=== PATIENT | male | born 1955 | race Caucasian/White ===

== ENCOUNTER 2020-06-24 19:53 | Inpatient (IN) | payer OTHER ==
[~2020-06-24] VITALS: Ht 175.3 cm; Wt 87.5 kg
[2020-06-24] MEDS ORDERED: ASPIRIN 81 MG CHEW TAB PO ONE ×2 (20:15→22:45)
--- NOTE | 2020-06-24 20:43 | Emergency Department Note ---
History of Present Illnes History of Present Illness Chief Complaint: Chest Pain History of Present Illness This is a 64 year old male SENT TO ER FOR ADMISSION BY DR. Arjun LEVY, PT IS SCHEDULED FOR [facility] TOMORROW AM AT THIS FACILITY; PT REPORTS INTERMITTENT CHEST PAIN X2 YEARS . states has had intermittent chest pain all day today, pain is left side of chest and does not radiate Historian: Patient Arrival Mode: Car Realtime Captioner Required: No Onset (how long ago): year(s) (2) Location: left chest Quality: pain Radiation: Reports non-radiation Severity: moderate Onset quality: sudden Duration (how long): month(s) (24) Timing of current episode: intermittent Progression: worsening Chronicity: recurrent Context: Denies recent illness, Denies recent surgery, Denies trauma/injury Relieving factors: none Exacerbating factors: none Associated symptoms: Reports denies other symptoms Past Medical/Family History Physician Review I have reviewed the patient's past medical and family history. Any updates have been documented here. Past Medical History Recent Fever: No Clinical Suspicion of Infectio: No New/Unexplained Change in Ment: No Social History Smoking Cessation: Current every day smoker Counseling Performed: Yes Alcohol Use: Occasional Any Illegal Drug Use: No Family History Family history of heart diseas: Yes Other family history htn,cad Review of Systems Review of Systems Constitutional: Reports no symptoms EENTM: Reports no symptoms Cardiovascular: Reports as per HPI Respiratory: Reports no symptoms Gastrointestinal: Reports no symptoms Genitourinary: Reports no symptoms Musculoskeletal: Reports no symptoms Integumentary: Reports no symptoms Neurological: Reports no symptoms Psychological: Reports no symptoms Endocrine: Reports no symptoms Hematological/Lymphatic: Reports no symptoms Physical Exam Related Data Allergies: Coded Allergies: amoxicillin (Verified Allergy, Unknown, 06/23/20) clavulanic acid (Verified Allergy, Unknown, 06/23/20) Triage Vital Signs Vital Signs Date Time Temp Pulse Resp B/P (MAP) Pulse Ox O2 Delivery O2 Flow Rate FiO2 06/24/20 20:33 98.2 82 17 137/74 98 Room Air Vital signs reviewed: Yes Physical Exam CONSTITUTIONAL Constitutional: Present well-developed, Present well-nourished; Absent distressed HENT HENT: Present normocephalic, Present atraumatic, Present oropharynx clear/moist, Present nose normal HENT L/R: Present left ext ear normal, Present right ext ear normal EYES Eyes: Reports PERRL, Reports conjunctivae normal NECK Neck: Present ROM normal PULMONARY Pulmonary: Present effort normal, Present breath sounds normal CARDIOVASCULAR Cardiovascular: Present regular rhythm, Present heart sounds normal, Present capillary refill normal, Present normal rate GASTROINTESTINAL Abdominal: Present soft, Present nontender, Present bowel sounds normal GENITOURINARY Genitourinary: Present exam deferred SKIN Skin: Present warm, Present dry MUSCULOSKELETAL Musculoskeletal: Present ROM normal NEUROLOGICAL Neurological: Present alert, Present oriented x 3, Present no gross motor or sensory deficits PSYCHOLOGICAL Psychological: Present mood/affect normal, Present judgement normal Results Laboratory Laboratory Laboratory Tests Test 06/24/20 21:55 06/24/20 20:32 White Blood Count 11.31 x10e3/uL (4.8-10.8) Red Blood Count 4.41 x10e6/uL (4.3-5.7) Hemoglobin 12.1 g/dL (14.0-18.0) Hematocrit 38.4 % (38.2-49.6) Mean Corpuscular Volume 87.1 fL (81-99) Mean Corpuscular Hemoglobin 27.4 pg (28-32) Mean Corpuscular Hemoglobin Concent 31.5 g/dL (31-35) Red Cell Distribution Width 15.7 % (11.7-14.4) Platelet Count 352 x10e3/uL (140-360) Neutrophils (%) (Auto) 58.3 % (38.7-80.0) Lymphocytes (%) (Auto) 30.9 % (18.0-39.1) Monocytes (%) (Auto) 6.7 % (4.4-11.3) Eosinophils (%) (Auto) 3.2 % (0.0-6.0) Basophils (%) (Auto) 0.5 % (0.0-1.0) Neutrophils # (Auto) 6.6 (2.1-6.9) Lymphocytes # (Auto) 3.5 (1.0-3.2) Monocytes # (Auto) 0.8 (0.2-0.8) Eosinophils # (Auto) 0.4 (0.0-0.4) Basophils # (Auto) 0.1 (0.0-0.1) Absolute Immature Granulocyte (auto 0.04 x10e3/uL (0-0.1) Prothrombin Time 12.2 seconds (11.9-14.5) Prothromb Time International Ratio 0.86 Activated Partial Thromboplast Time 25.0 seconds (23.8-35.5) Sodium Level 143 mmol/L (136-145) Potassium Level 3.7 mmol/L (3.5-5.1) Chloride Level 107 mmol/L (98-107) Carbon Dioxide Level 21 mmol/L (22-29) Anion Gap 18.7 mmol/L (8-16) Blood Urea Nitrogen 29 mg/dL (7-26) Creatinine 1.34 mg/dL (0.72-1.25) Estimat Glomerular Filtration Rate 54 ML/MIN (60-) BUN/Creatinine Ratio 22 (6-25) Glucose Level 91 mg/dL (74-118) Calcium Level 9.0 mg/dL (8.4-10.2) Total Bilirubin 0.2 mg/dL (0.2-1.2) Aspartate Amino Transf (AST/SGOT) 16 IU/L (5-34) Alanine Aminotransferase (ALT/SGPT) 15 IU/L (0-55) Alkaline Phosphatase 76 IU/L (40-150) Creatine Kinase 150 IU/L (30-200) Creatine Kinase MB 2.20 ng/mL (0-5.0) Troponin I 0.005 ng/mL (0-0.300) B-Type Natriuretic Peptide 18.4 pg/mL (0-100) Total Protein 7.3 g/dL (6.5-8.1) Albumin 4.2 g/dL (3.5-5.0) Globulin 3.1 g/dL (2.3-3.5) Albumin/Globulin Ratio 1.4 (0.8-2.0) Lab results reviewed: Yes Imaging Imaging results reviewed: Yes Procedures 12 Lead ECG Interpretation ECG Interpretation : ECG: ECG 1 Realtime Captioner: Interpreted by ED physician Date: Jun 24, 2020 Time: 20:24 Rhythm: sinus rhythm Rate: normal BPM: 78 QRS axis: normal ST segments normal: No (nons pecific changes) T waves normal: No (nonsecific changes) Q waves: V1 Clinical Impression: abnormal ECG Assessment & Plan Medical Decision Making MDM pt with worsening intermittent chest pain cbc, cmp, ekg, pt/ptt, cardiac enzymes, cxr ordered to eval for myocardial infarction, electrolyte abnormality, pulmonary edema, interstitial lung disease, aspirin 81 mg po ordered i spoke with dr levy for admission Assessment & Plan Final Impression: (1) Chest pain Depart Disposition: ADMITTED Last Vital Signs Date Time Temp Pulse Resp B/P (MAP) Pulse Ox O2 Delivery O2 Flow Rate FiO2 06/24/20 20:33 98.2 82 17 137/74 98 Room Air Medications in the ED Aspirin 81 mg PRN ONCE PO ; Start 06/24/20 at 20:15; Stop 06/24/20 at 20:16; Status DC JUAN SKAGGS MD Jun 24, 2020 20:43
[2020-06-24 20:46] LABS: BASOPHILS # (AUTO) 0.1 (0.0-0.1); BASOPHILS % 0.5 % (0.0-1.0); EOSINOPHILS # (AUTO) 0.4 (0.0-0.4); EOSINOPHILS % 3.2 % (0.0-6.0); HEMATOCRIT 38.4 % (38.2-49.6); HEMOGLOBIN 12.1 g/dL (14.0-18.0); LYMPHOCYTES # (AUTO) 3.5 (1.0-3.2); LYMPHOCYTES % 30.9 % (18.0-39.1); MEAN CORPUSCULAR HEMOGLOBIN 27.4 pg (28-32); MEAN CORPUSCULAR HGB CONC 31.5 g/dL (31-35); MEAN CORPUSCULAR VOLUME 87.1 fL (81-99); MONOCYTES # (AUTO) 0.8 (0.2-0.8); MONOCYTES % 6.7 % (4.4-11.3); NEUTROPHILS # (AUTO) 6.6 (2.1-6.9); NEUTROPHILS % 58.3 % (38.7-80.0); PLATELET COUNT 352 x10e3/uL (140-360); RED BLOOD COUNT 4.41 x10e6/uL (4.3-5.7); RED CELL DISTRIBUTION WIDTH 15.7 % (11.7-14.4)
--- OUTSIDE RECORDS SUMMARY | 2020-06-24 20:55 | XMS REPORT | Continuity of Care Document ---
Author Author [facility] t Organization [facility] Address [address] [place] [address] Phone Unavailable Care Team Providers Care Senior Risk Manager Name Role Phone Benson GUZMAN, Ashley Attphys Cheo GUZMAN, Jonathan Pearson Attphys [phone] Doctor Unassigned, Name No Attphys Unavailable Rima SUPERVISOR TANK CLEANINGKaylie Attphys Soledad SUPERVISOR TANK CLEANINGEnrique Attphys Unavailable Problems This patient has no known problems. Allergies, Adverse Reactions, Alerts This patient has no known allergies or adverse reactions. Social History Social Habit Start Date Stop Date Quantity Comments Source Sex Assigned At Olga ston Mandaen Medications This patient has no known medications. Immunizations Ordered Immunization Name Filled Immunization Name Date Status Comments Source FLUCELVAX QUAD PF 2019-06-20 00:00:00 Completed [facility] Procedures This patient has no known procedures. Plan of Care Planned Activity Planned Date Details Comments Source Future Scheduled Test 2020-07-16 00:00:00 INFLUENZA VACCINE [code = INFLUENZA VACCINE] [facility] Future Scheduled Test 2007-12-30 00:00:00 COLONOSCOPY SCREEN ING [code = COLONOSCOPY SCREENING] [facility] Future Scheduled Test 2007-12-30 00:00:00 SHINGLES VACCINES (#1) [code = SHINGLES VACCINES (#1)] [facility] Encounters Start Date/Time End Date/Time Encounter Type Admission Type Attendi [facility] Facility Care Department Encounter ID Source 2020-06-21 00:00:00 2020-06-21 00:00:00 Refill Ashley Willis [facility] [id number] 2020-05-26 00:00:00 2020-05-26 00:00:00 Refill Claude dejesus [facility] [id number] 2020-03-27 00:00:00 2020-03-27 00:00:00 Refill Claude dejesus [facility] [id number] 2020-03-19 00:00:00 2020-03-19 00:00:00 Refill Lili Gay [facility] [id number] 2020-03-13 00:00:00 2020-03-13 00:00:00 Orders Only D octor Unassigned, [place] [facility] [id number] 2020-03-02 00:00:00 2020-03-02 00:00:00 Refill Lili Gay [facility] [id number] 2020-01-28 00:00:00 2020-01-28 00:00:00 Telephone Lili Gay [facility] [id number] 2020-01-27 09:59:13 2020-01-27 10:29:13 Telemedicine Visit Lili Grider [facility] [id number] 2020-01-24 00:00:00 2020-01-24 00:00:00 Telephone Ras Williskira [facility] [id number] 2020-01-10 00:00:00 2020-01-10 00:00:00 Refill Kaylie Meehan [facility] [id number] 2019-12-27 00:00:00 2019-12-27 00:00:00 Refill Ras Williskira [facility] [id number] 2019-07-03 00:00:00 2019-07-03 00:00:00 Refill Enrique Rowe [facility] [id number] Results This patient has no known results.
--- OUTSIDE RECORDS SUMMARY | 2020-06-24 20:55 | XMS REPORT | Clinical Summary ---
Author Author [facility] Organization [facility] Address Unknown Phone Unavailable Care Team Providers Care Tax Compliance Representative Name Role Phone PCP Unavailable Allergies Not on File Medications Not on file Active Problems Not on file Immunizations Name Administration Dates Next Due FLUCELVAX QUAD PF 06/20/2019 Social History Date Tobacco Use Types Packs/Day Years Used Never Assessed Sex Assigned at Date Recorded Not on file Industry Job Start Date Occupation Not on file Not on file Not on file Travel End Travel History Travel Start No recent travel history available. Last Filed Vital Signs Not on file Plan of Treatment Health Maintenance Due Date Last Done Comments COLONOSCOPY SCREENING 12/30/2007 SHINGLES VACCINES (#1) 12/30/2007 INFLUENZA VACCINE 07/16/2020 06/20/2019 Results Not on fileafter 06/24/2019 Advance Directives For more information, please contact: [phone] Patient Event Promotions Coordinator Explanation Type Date Recorded Advance Directives, Living Will and Medical Power of Metal Drawer
[2020-06-24 21:02] LABS: ALBUMIN 4.2 g/dL (3.5-5.0); ALBUMIN/GLOBULIN RATIO 1.4 (0.8-2.0); ANION GAP 18.7 mmol/L (8-16); CREATININE, SERUM 1.34 mg/dL (0.72-1.25); POTASSIUM 3.7 mmol/L (3.5-5.1)
[2020-06-24 21:08] LABS: CREATINE KINASE MB 2.2 ng/mL (0-5.0)
[2020-06-24 21:11] LABS: INR 0.86; PROTHROMBIN TIME 12.2 seconds (11.9-14.5)
--- NOTE | 2020-06-24 22:35 | Diagnostic Imaging Report ---
EXAMINATION: CHEST SINGLE (PORTABLE) INDICATION: Chest pain COMPARISON: None FINDINGS: TUBES and LINES: None. LUNGS: Normal lung volumes. Lungs are clear. No consolidations. PLEURA: No pleural effusion or pneumothorax. HEART AND MEDIASTINUM: The cardiomediastinal silhouette is unremarkable. BONES AND SOFT TISSUES: No acute osseous lesion. Soft tissues are unremarkable. UPPER ABDOMEN: No free air under the diaphragm. IMPRESSION: No acute thoracic radiographic abnormality. Signed by: Jose De Jesus Bauman DO on 06/24/2020 10:31 PM
--- OUTSIDE RECORDS SUMMARY | 2020-06-24 22:40 | XMS REPORT | Clinical Summary ---
Author Author [facility] Organization [facility] Address Unknown Phone Unavailable Care Team Providers Care Bath Steward Name Role Phone PCP Unavailable Allergies Not [...] Advance Directives For more information, please contact: [phone] Patient Customer Experience Intern Explanation Type Date Recorded Advance Directives, Living Will and Medical Power of Geometry Professor
--- OUTSIDE RECORDS SUMMARY | 2020-06-24 22:40 | XMS REPORT | Continuity of Care Document ---
Author Author [facility] t Organization [facility] Address [address] [place] [address] Phone Unavailable Care Team Providers Care Psychiatric Technician Name Role Phone Olesya SKAGGS Attphys Unavailable Ashley Knowles MD Attphys Cheo GUZMAN, Jonathan Pearson Attphys [phone] Doctor Unassigned, Name No Attphys Unavailable Rima SHOT PEEN OPERATORKaylie Attphys Soledad SHOT PEEN OPERATOREnrique Attphys Unavailable NOLAN BELLA Admphys Unavailable Problems This patient has no known problems. Allergies, Adverse Reactions, Alerts This patient has no known allergies or adverse reactions. Social History Social Habit Start Date Stop Date Quantity Comments Source Sex Assigned At Olga ston [employer] Medications This patient has no known medications. Immunizations Ordered Immunization Name Filled Immunization Name Date Status Comments Source FLUCELVAX QUAD PF 2019-06-20 00:00:[address] [facility] Procedures This patient has no known procedures. Plan of Care Planned Activity Planned Date Details Comments Source Future Scheduled Test 2020-07-16 00:00:00 INFLUENZA VACCINE [code = INFLUENZA VACCINE] [facility] Future Scheduled Test 2007-12-30 00:00:00 COLONOSCOPY SCREEN ING [code = COLONOSCOPY SCREENING] [facility] Future Scheduled Test 2007-12-30 00:00:00 SHINGLES VACCINES (#1) [code = SHINGLES VACCINES (#1)] [facility] Encounters Start Date/Time End Date/Time Encounter Type Admission Type Attendi [facility] Care Department Encounter ID Source 2020-06-21 00:00:00 2020-06-21 00:00:00 Refill Dhamoth oleg, [facility] [id number] 2020-05-26 00:00:00 2020-05-26 00:00:00 Refill Claude dejesus [facility] [id number] 2020-03-27 00:00:00 2020-03-27 00:00:00 Refill Claude dejesus [facility] [id number] 2020-03-19 00:00:00 2020-03-19 00:00:00 Refill Lili Gay [facility] [id number] 2020-03-13 00:00:00 2020-03-13 00:00:00 Orders Only D octor Unassigned, [place] [facility] [id number] 2020-03-02 00:00:00 2020-03-02 00:00:00 Refill Lili Gay [facility] [id number] 2020-01-28 00:00:00 2020-01-28 00:00:00 Telephone Lili Gay [facility] [id number] 2020-01-27 09:59:13 2020-01-27 10:29:13 Telemedicine Visit Lili Grider [facility] [id number] 2020-01-24 00:00:00 2020-01-24 00:00:00 Telephone Claude dejesus [facility] [id number] 2020-01-10 00:00:00 2020-01-10 00:00:00 Refill Kaylie Meehan [facility] [id number] 2019-12-27 00:00:00 2019-12-27 00:00:00 Refill Claude dejesus Ashley [facility] [id number] 2019-07-03 00:00:00 2019-07-03 00:00:00 Refill RoweEnrique [facility] [id number] Results Test Description Test Time Test Comments Results Result Comments Source CHEST SINGLE (PORTABLE) 2020-06-24 22:31:00 [facility] [address] [place] [address] Patient Name: TYRONE POP MR #: [id number] : 1955 Age/Sex: 64/M Req #: [id number] Adm Physician: Ordered by: JUAN SKAGGS MD Report #: [id number] Location: ER Room/Bed: Procedure: [id number] DX/CHEST SINGLE (PORTABLE) Exam Date: Exam Time: REPORT STATUS: Signed EXAMINATION: CHEST SINGLE (PORTABLE) INDICATION: Chest pain COMPARISON: None FINDINGS: TUBES and LINES: None. LUNGS: Normal lung volumes. Lungs are clear. No consolidations. PLEURA: No pleural effusion or pneumothorax. HEART AND MEDIASTINUM: The cardiomediastinal silhouette is unremarkable. BONES AND SOFT TISSUES: No acute osseous lesion. Soft tissues are unremarkable. UPPER ABDOMEN: No free air under the diaphragm. IMPRESSION: No acute thoracic radiographic abnormality. Signed by: Jose De Jesus Bauman DO on 06/24/2020 10:31 PM Dictated By: JOSE DE JESUS BAUMAN DO 30 Transcribed By: GARCIA on 06/24/202230 COPY TO: JUAN SKAGGS MD
[2020-06-24] MEDS ORDERED: ONDANSETRON HCL INJ 2MG/ML 2ML 2 MG/ML VIAL IV PRN (22:45)
[2020-06-24] MEDS ORDERED: SODIUM CHLORIDE FLUSH 10 ML SYR INJ PRN (22:45)
[2020-06-24] MEDS ORDERED: MORPHINE SULFATE 2 MG/ML SYR 1ML IV PRN (22:45)
--- NOTE | 2020-06-24 23:30 | NUR ---
Received patient from the Emergency Room. No complain of chest pain at this time. Patient is alert and oriented. Ambulates independently. Snacks offered. Patient is aware that he will be NPO after midnight.
[2020-06-25] VITALS (18 sets, daily range): BP systolic 110–143; BP diastolic 64–88
[2020-06-25] MEDS ORDERED: OMEPRAZOLE40 MG PO (00:56)
[2020-06-25] MEDS ORDERED: AMLODIPINE-OLM1 EACH PO (00:57)
[2020-06-25] MEDS ORDERED: PRAVACHOL20 MG PO (00:57)
[2020-06-25] MEDS ORDERED: ASPIRIN CHEW81 MG PO (00:58)
--- NOTE | 2020-06-25 01:09 | NUR ---
Patient is on NPO as ordered but no order for procedure yet.
[2020-06-25 06:07] LABS: CREATINE KINASE MB 2.4 ng/mL (0-5.0)
[2020-06-25 06:12] LABS: CHOL/HDL RATIO 5.8 (3.9-4.7)
[2020-06-25] MEDS ORDERED: HEPARIN SOD (PORCINE) 1000 UNIT/ML 30ML ONE (07:00)
[2020-06-25] MEDS ORDERED: MIDAZOLAM HCL 2 MG/2 ML VIAL ONE ×3 (07:00→07:52)
[2020-06-25] MEDS ORDERED: VERAPAMIL HCL 2.5 MG/ML 2 ML VIAL ONE (07:00)
--- NOTE | 2020-06-25 07:00 | NUR ---
SBAR REPORT RECEIVED FROM DAVID ESQUEDA, PM SHIFT. PT CURRENTLY IN WOODWORKING MACHINE OPERATOR.
[2020-06-25] MEDS ORDERED: HEPARIN SOD/SOD CHLORIDE 2,000 ML ONE (07:01)
[2020-06-25] MEDS ORDERED: FENTANYL CITRATE/PF 100MCG/2 ML INJ ONE ×2 (07:01→07:53)
[2020-06-25] MEDS ORDERED: LIDOCAINE HCL 2% LOCAL 20 ML VIAL ONE (07:01)
[2020-06-25] MEDS ORDERED: SODIUM CHLORIDE 0.9% 1000ML 1,000 ML ONE (07:02)
[2020-06-25] MEDS ORDERED: NITROGLYCERIN/D5W 200 MCG/ML 250 ML ONE (07:02)
[2020-06-25] MEDS ORDERED: IOPAMIDOL 300MG/ML 100 ML INFUS..BTL IV ONE (07:02)
[2020-06-25] MEDS ORDERED: BIVALRIUDIN 250 MG/VIAL VIAL IV ONE (07:25)
[2020-06-25] MEDS ORDERED: SODIUM CHLORIDE 0.9% 50ML 50 ML ONE ×2 (07:25→07:44)
[2020-06-25] MEDS ORDERED: ADENOSINE 3MG/1ML 30ML VIAL ONE (07:44)
[2020-06-25] MEDS ORDERED: PRASUGREL 10 MG TAB ONE (07:52)
[2020-06-25] MEDS ORDERED: ASPIRIN 325 MG TAB ONE (07:53)
[2020-06-25] MEDS ORDERED: HYDROCODONE/APAP 5MG-325MG TAB PO PRN (08:15)
[2020-06-25] MEDS ORDERED: ONDANSETRON HCL INJ 2MG/ML 2ML 2 MG/ML VIAL IV PRN (08:15)
[2020-06-25] MEDS ORDERED: MORPHINE SULFATE INJ 4 MG/ML INJ 1ML IV PRN (08:15)
[2020-06-25] MEDS ORDERED: ACETAMINOPHEN 325 MG TAB PO PRN (08:15)
--- NOTE | 2020-06-25 08:45 | NUR ---
0845a bedside report received from YIN Snow. Alert oriented and appropriate, PERRLA, respirations even and unlabored to room air. Pulses x4 extremities equal and strong. Pedal pulses PT/DP X4 and marked. Cap fill brisk < 3 sec. Tr band ok decrease air at 1030a Skin warm and dry integrity appears. IV 20g to lt ac presents healthy w/o s/s of infiltration or complaint. Abdomen soft and supple. pt offered toileting, denies need to urinate or defecate. No personal affects with patient. Family sister at bedside TR band teacing ,diagram and stent card given to pt and explained to sister.Pt and family verbalizes understanding of POC. Pre-Op Meds telemetry pack on to floor. Post tr band off Normal neurovascular function.No active bleeding. Currently w/o complaint of pain or need.Up to bathroom void qs. Pt doesn't want iv fluids further. Angio drip off. Tolerate po intake well with snack tray.ds/rn
--- NOTE | 2020-06-25 08:49 | Operative Report ---
DATE OF PROCEDURE: 06/25/2020 SURGEON: William Sabillon MD INDICATION: 1. Non ST-segment elevation myocardial infarction. 2. Peripheral arterial disease with claudication of the left lower extremity. 3. Abdominal aortic aneurysm. COMPLICATIONS: None. RECOMMENDATIONS: Staged intervention, ostial left anterior descending artery. PROCEDURES PERFORMED: 1. Ultrasound-guided access in the right radial artery with sheath placement. 2. Conscious sedation administration, hemodynamic and neurological monitoring and recovery by cathode ray tube assembler RN, supervision by MD, 65 minutes. 3. Left heart catheterization, selective coronary angiography. 4. Abdominal aorta catheter placement, abdominal aortogram. 5. Bilateral lower extremity angiograms with 3rd order catheter placement from the right radial artery to bilateral femoral arteries. 6. A fractional flow reserve measurement of the circumflex artery. 7. Stent placement to the mid circumflex artery. 8. Deployment of right wrist TR band. DESCRIPTION OF PROCEDURE: An access was obtained in the right radial artery using ultrasound guidance, a 6-Greek sheath was placed. Coronary angiography demonstrated 20-30% distal left main stenosis, ostial circumflex 50% to 70% stenosis, ostial left anterior descending artery 90% stenosis, mid left anterior descending artery 50% stenosis, mid circumflex 80% stenosis, right coronary artery 50% stenosis. Abdominal aorta catheter placement revealed abdominal aortic aneurysm, ecstatic and aneurysmal iliac bilaterally. Selective cannulation of both femoral arteries demonstrated 50% stenosis in bilateral femoral artery, 90% stenosis of ostial left anterior tibial artery. Right tibial vessels had mild disease. Three-vessel runoff bilaterally. LV end-diastolic pressure of 4. No gradient across the aortic valve on pullback. A decision was made to measure fractional flow reserve significance of the ostial circumflex artery. The patient received intravenous Angiomax and oral prasugrel and aspirin for anticoagulation. The left main was cannulated using an XB3.5, 6-Greek guiding catheter. Following normalization, an FFR wire was advanced across the circumflex lesion. Direct fractional reserve was measured at 1.0. The lesion was felt to be insignificant. A single 3.0 x 12 mm Synergy stent was deployed in the mid circumflex artery at 14 atmospheres. Excellent end result, less than 10% residual stenosis, GAGE-3 flow. No complications. Wire and guide sheath removed. The patient was transferred to the floor in stable condition for staged intervention on the left anterior descending artery. MD LINWOOD Coe/LINETTE /[id number]
--- NOTE | 2020-06-25 08:54 | History and Physical ---
CHIEF COMPLAINT: Chest pain. HISTORY OF PRESENT ILLNESS: Mr. Sotelo is 64 years old. He has known coronary and peripheral vascular disease. He continues to smoke. He has had unstable chest pain, on and off at rest on exertion for the last 24 hours. He was scheduled for an outpatient procedure; however, there was a concern for myocardial infarction and he presented to the emergency room at [facility]. At the emergency room, his cardiac troponin is mildly elevated at 0.07. He has some EKG changes consistent with mtn-YP-zgcbhzy elevation myocardial infarction. LDL cholesterol 149, serum creatinine 1.34 with a calculated GFR of 54. PAST MEDICAL HISTORY: Hypertension. SOCIAL HISTORY: The patient smokes approximately 1 to 2 packs of tobacco cigarettes a day. Denies using alcohol. ALLERGIES: AMOXICILLIN. FAMILY HISTORY: Significant for coronary artery disease in his mother. REVIEW OF SYSTEMS: Negative except as dictated in the history of present illness. PHYSICAL EXAMINATION: GENERAL: Mild distress due to chest pain. Alert and oriented. CARDIOVASCULAR: Regular rhythm. S4 gallop. No murmurs. LUNGS: Clear to auscultation bilaterally. ABDOMEN: Soft. Bowel sounds heard adequately. No abdominal pain. EXTREMITIES: Peripheral pulses, left dorsalis pedis pulses absent. NEUROLOGICAL: Nonfocal. SKIN: Does not reveal any abnormalities. No chest wall tenderness. IMAGING DATA: Electrocardiogram shows sinus rhythm with ST depression. Chest x-ray shows no acute abnormalities. LABORATORY DATA: Labs reviewed and described above. ASSESSMENT: 1. Oph-ZG-vomgvby elevation myocardial infarction. 2. Coronary artery disease. 3. Abdominal aortic aneurysm. 4. Peripheral arterial disease. PLAN: Mr. Sotelo has been admitted as an inpatient. He underwent repeat cardiac enzymes to rule out myocardial infarction. At this point, coronary and peripheral vascular angiography is indicated in an urgent manner. This will be performed RAJIV. Risks, benefits, and alternatives of this procedure were discussed with the patient and he is agreeable for the same. MD LINWOOD Coe/MODL /[id number]
[2020-06-25] MEDS ORDERED: ASPIRIN 81 MG ENTERIC COATED PO SCH (09:00)
[2020-06-25] MEDS ORDERED: METOPROLOL SUCCINATE 25 MG TAB XL PO ONE (09:45)
--- NOTE | 2020-06-25 10:30 | NUR ---
1030a RADIAL Compression removal: Initial Cuff volume 13cc 1030a -3cc Removed No hematoma/bleeding noted with normal neurovascular function. 1045a -5cc Removed No hematoma/ bleeding noted with normal neurovascular function. 1100a -5cc Removed No hematoma/bleeding noted with normal neurovascular function. Air removal completed. Stasis achieved sterile 2x2,Tegaderm, Coban dressing No hematoma, bleeding noted with normal neurovascular function. Pt instructed on POC.Pt wanted arm sling paged Dr Ridge sharpe to place on pt. Order confirmed and placed on pt with DME filled out. Pt teaching regarding TR band teaching and precautions pt aware or restrictions, Ds/Rn
--- NOTE | 2020-06-25 10:45 | NUR ---
SBAR PHONE REPORT RECEIVED FROM JOSEPH ESQUEDA, WEB SITE ADMINISTRATOR NURSE.
--- NOTE | 2020-06-25 11:00 | NUR ---
1100 Hand off completed to 212 nurse. NO gross issues with rt tr band site. NO hematoma and normal neuro vascular function. arm sling in place.Pt instructed to get help to get up due to sedation left pt call light at bedside,bed in low position and side rails up x2. Sister does have diagram,stent card and copies of tr band teaching tool pt tolerated po intake and back to baseline orientation. ds/rn
--- NOTE | 2020-06-25 11:10 | NUR ---
PATIENT ARRIVED TO FLOOR FROM ANSWERING SERVICE TELEPHONE OPERATOR BY BED. PATIENT WAS FOUND RESTING IN BED IN NO ACUTE DISTRESS. PT IS AAOX4, ABLE TO MAKE NEEDS KNOWN. PT DENIES ANY NEEDS AT THIS TIME. SLING TO RIGHT SHOULDER. PRESSURE DRESSING IN PLACE. C/D/I. TELEMETRY BATTERIES CHANGED BY MADDY ARRIETA. PT WAS EDUCATED ON FALL RISK PRECAUTIONS AND VERBALIZED UNDERSTANDING. CALL LIGHT AND BELONGINGS PLACED NEARBY. WILL CONTINUE TO MONITOR.
[2020-06-25] MEDS: OLMESARTAN 20 MG TAB PO SCH (12:23)
[2020-06-25] MEDS: AMLODIPINE BESYLATE 5 MG TAB PO SCH (12:24)
[2020-06-25] MEDS: SODIUM CHLORIDE 0.9% 1000ML 1,000 ML IV SCH ×2 (12:24→19:30)
[2020-06-25 15:06] LABS: CREATINE KINASE MB 2.5 ng/mL (0-5.0)
--- NOTE | 2020-06-25 15:20 | NUR ---
DURING BEDSIDE ROUNDING, PATIENT REPORTS HE "FEELS LIKE HE NEEDS A CIGARETTE". PATIENT SMOKES 2 PACKS OF DAY OVER THE LAST 50 YEARS. CALL PLACED TO ADMITTING PHYSICIAN, DR. NOLAN BELLA. LEFT MESSAGE WITH ANSWERING SERVICE FOR A RETURN CALL.
--- NOTE | 2020-06-25 19:46 | NUR ---
RECEIVED PT IN BED AOX3 RESPIRATIONS ARE EVEN AND UNLABORED PT IS NPO AFTER MIDNIGHT FOR CHRONOGRAPHY ANGIOGRAM LEFT AC 20 G NS AT 100CC/HR CALL LIGHT WITH IN REACH ,CONTINUE TO MONITOR
[2020-06-25] MEDS: ASPIRIN 81 MG CHEW TAB PO SCH (21:00)
[2020-06-25] MEDS ORDERED: ZOLPIDEM TARTRATE 5 MG TAB PO PRN (21:00)
[2020-06-25] MEDS: PANTOPRAZOLE SOD 40 MG TABEC PO SCH (21:18)
[2020-06-25] MEDS: ATORVASTATIN 40 MG TAB PO SCH (21:18)
[2020-06-26] VITALS (15 sets, daily range): BP systolic 106–154; BP diastolic 52–94
[2020-06-26] MEDS: SODIUM CHLORIDE 0.9% 1000ML 1,000 ML IV SCH ×3 (05:30→23:22)
[2020-06-26 05:57] LABS: BASOPHILS # (AUTO) 0.1 (0.0-0.1); BASOPHILS % 0.5 % (0.0-1.0); EOSINOPHILS # (AUTO) 0.4 (0.0-0.4); EOSINOPHILS % 4.3 % (0.0-6.0); HEMATOCRIT 38.9 % (38.2-49.6); HEMOGLOBIN 12.4 g/dL (14.0-18.0); LYMPHOCYTES # (AUTO) 2.3 (1.0-3.2); LYMPHOCYTES % 22.6 % (18.0-39.1); MEAN CORPUSCULAR HEMOGLOBIN 28.2 pg (28-32); MEAN CORPUSCULAR HGB CONC 31.9 g/dL (31-35); MEAN CORPUSCULAR VOLUME 88.4 fL (81-99); MONOCYTES # (AUTO) 0.8 (0.2-0.8); MONOCYTES % 8.2 % (4.4-11.3); NEUTROPHILS # (AUTO) 6.6 (2.1-6.9); NEUTROPHILS % 64.1 % (38.7-80.0); PLATELET COUNT 301 x10e3/uL (140-360); RED CELL DISTRIBUTION WIDTH 15.3 % (11.7-14.4)
[2020-06-26 06:12] LABS: ANION GAP 14.8 mmol/L (8-16); BLOOD UREA NITROGEN 15 mg/dL (7-26); BUN/CREATININE RATIO 14 (6-25); CALCIUM 8.5 mg/dL (8.4-10.2); CARBON DIOXIDE 21 mmol/L (22-29); CHLORIDE 109 mmol/L (98-107); CREATININE, SERUM 1.08 mg/dL (0.72-1.25); EST GLOMERULAR FILTRATION RATE > 60 ML/MIN (60-); GLUCOSE 93 mg/dL (74-118); POTASSIUM 3.8 mmol/L (3.5-5.1); SODIUM 141 mmol/L (136-145)
--- NOTE | 2020-06-26 06:21 | NUR ---
C/O PAIN AND GIVEN ORDERED PAIN MEDICATION ,CALL LIGHT WITH IN REACH CONTINUE TO MONITOR Addendum: 06/26/20 at 0622 by Cher Tovar RN WRONG PT
--- NOTE | 2020-06-26 06:22 | NUR ---
PT IS NPO FOR ANGIOGRAPHY .CALL LIGHT WITH IN REACH ,CONTINUE TO MONITOR
[2020-06-26] MEDS ORDERED: VERAPAMIL HCL 2.5 MG/ML 2 ML VIAL ONE (06:45)
[2020-06-26] MEDS ORDERED: HEPARIN SOD (PORCINE) 1000 UNIT/ML 30ML ONE (06:45)
[2020-06-26] MEDS ORDERED: SODIUM CHLORIDE 0.9% 50ML 50 ML ONE (06:46)
[2020-06-26] MEDS ORDERED: MIDAZOLAM HCL 2 MG/2 ML VIAL ONE ×2 (06:46→07:07)
[2020-06-26] MEDS ORDERED: LIDOCAINE HCL 2% LOCAL 20 ML VIAL ONE ×2 (06:46→07:07)
[2020-06-26] MEDS ORDERED: BIVALRIUDIN 250 MG/VIAL VIAL IV ONE (06:46)
[2020-06-26] MEDS ORDERED: SODIUM CHLORIDE 0.9% 1000ML 1,000 ML ONE (06:47)
[2020-06-26] MEDS ORDERED: IOPAMIDOL 370 MG/ML 200 ML INFUS..BTL INJ ONE (06:47)
[2020-06-26] MEDS ORDERED: NITROGLYCERIN/D5W 200 MCG/ML 250 ML ONE (06:47)
[2020-06-26] MEDS ORDERED: HEPARIN SOD/SOD CHLORIDE 2,000 ML ONE (06:48)
[2020-06-26] MEDS ORDERED: FENTANYL CITRATE/PF 100MCG/2 ML INJ ONE (06:50)
--- NOTE | 2020-06-26 06:50 | NUR ---
PT CURRENTLY IN ASSOCIATE DATA SCIENTIST Addendum: 06/26/20 at 0723 by Lola Jackson RN BEDSIDE SBAR REPORT RECEIVED FROM ESTEPHANIA ESQUEDA
--- NOTE | 2020-06-26 06:51 | NUR ---
PT HAS TAKEN TO OR TO DO SURGERY
[2020-06-26] MEDS ORDERED: HEPARIN SOD/SOD CHLORIDE 1,000 ML ONE (07:07)
[2020-06-26] MEDS ORDERED: ASPIRIN 325 MG TAB ONE (07:59)
[2020-06-26] MEDS ORDERED: PRASUGREL 10 MG TAB ONE (07:59)
[2020-06-26] MEDS ORDERED: NICOTINE 21 MG/EA PATCH TOP PRN (08:45)
--- NOTE | 2020-06-26 08:45 | NUR ---
0845am RECEIVING NOTE [employer] DEPT............................................................... Bedside report received from YIN Snow. Identifierx2. Alert oriented and appropriate, PERRLA, respirations even and unlabored to room air. Pulses x4 extremities equal and strong. Pedal pulses PT/DP X4 and marked. Cap fill brisk < 3 sec. Bilateral 6fr sheaths sutured in place left ooze to dressing 4" circumference and Rt Sheath scattered ooze to dressing over sheath site. Angiomax just completed No other gross issues pain,pallor,pressure or dysarthria. Skin warm and dry integrity appears intact. IV 20g to left arm,presents healthy w/o s/s of infiltration or complaint. Abdomen soft and supple. pt offered toileting, denies need to urinate or defecate. No personal affects with patient. Family at bedside, Pt and family verbalizes understanding transfer to ICU. Currently w/o complaint of pain or need. ds/rn
[2020-06-26] MEDS: PRASUGREL 10 MG TAB PO SCH (09:00)
[2020-06-26] MEDS: METOPROLOL SUCCINATE 25 MG TAB XL PO SCH (09:00)
[2020-06-26] MEDS: OLMESARTAN 20 MG TAB PO SCH (09:00)
[2020-06-26] MEDS: AMLODIPINE BESYLATE 5 MG TAB PO SCH (09:00)
--- NOTE | 2020-06-26 09:00 | NUR ---
0900a Nicotine TRansdermal patch 21mg applied to rt posterior arm. Removed right arm dressing no bruise from arterial site from yesterday heart cath. Normal neurovascular function. Lola ESQUEDA floor staff informed pt will be transferring to ICU care post sheath pull and bed availability [facility]. Horacio ESQUEDA aware transfer request. tabitha/rn
--- NOTE | 2020-06-26 09:15 | NUR ---
RECEIVED CALL FROM JOSEPH ESQUEDA, SOCIAL INSURANCE SPECIALIST. PT IS TRANSFERRING TO ICU AND IS NOT COMING BACK TO THE FLOOR. MONITOR ROOM MADE AWARE.
--- NOTE | 2020-06-26 09:45 | NUR ---
0945 Ooze noted increased to left leg. senior nuclear medicine technologist Jack ZULETA and Ana Snow reassessed site and will increase pull time till 1030am. PP present x4.No further issues pain,pallor,pressure or dysrhythmia. ds/rn
--- NOTE | 2020-06-26 10:25 | Operative Report ---
DATE OF PROCEDURE: 06/26/2020 SURGEON: William Sabillon MD Cardiac Shooter Helper Procedure Note INDICATION: Coronary artery disease, unstable angina. PROCEDURES PERFORMED: 1. Ultrasound-guided access in bilateral femoral arteries with sheath placement. 2. Conscious sedation 65 minutes. 3. Left heart catheterization, selective coronary angiography. 4. Stent placement to the ostial left anterior descending artery. 5. Intra-aortic balloon pump. COMPLICATIONS: None. RECOMMENDATIONS: Dual-antiplatelet therapy for life. DESCRIPTION OF PROCEDURE: Access obtained in the right femoral artery. A 6-Lebanese sheath was placed. Access obtained in the left femoral artery for balloon pump insertion. The patient received intravenous Angiomax for anticoagulation. The left main was cannulated using a 3.5 cm 6-Lebanese XB guiding catheter. Two wires were advanced down the left anterior descending and circumflex stenosis. Proximal left anterior descending artery was pre-dilated with 2.5 mm balloon following which two overlapping 3.5 x 16 and 8 mm PROMUS stents were deployed at 14 and 18 atmospheres respectively. Excellent end result, however, there was some plaque encroachment onto the ostium of the circumflex artery, for which the patient underwent balloon angioplasty in kissing fashion with a 3.5 mm noncompliant balloon in both the left anterior descending and circumflex artery. Final angiography demonstrated excellent flow in both circumflex and left anterior descending arteries, however, this left anterior descending artery was widely patent stents without any complications. The circumflex ostium had 50% to 70% residual stenosis. No further intervention was deemed necessary. The intra-aortic balloon pump was introduced, but not initiated for counter pulsations due to hemodynamic stability of the patient. Sheath was secured in place removed under manual pressure. The patient was observed in the hospital overnight. William Sabillon MD KSB/MODL /[id number]
--- NOTE | 2020-06-26 10:30 | NUR ---
1030a Bilateral sheath pull in progress Kelley holding rt groin and left leg Don echo vascular technologist ds/rn
--- NOTE | 2020-06-26 10:30 | NUR ---
1030am SHEATH PULL VS sheath pull in progress vs charted intra pull Adrian RT and Don RTR manual pressure held to rt and leg leg groin respectfully [id number]/70 58 17 100% Ra 0540u380/79 64 22 100% Ra 1785a714/78 65 -16 100%Ra 3423n642/76 66 18 100% RA 1050a rt groin stasis achieved 125/71 68 18 RA 100% 8359n594/77 66 19 100% RA 2595f469/70 64 18 Ra 1105 left groin stasis [id number]/56 76 18 100% RA No grossissues pain pallor pressure or dysrhythmia.ds/rn
--- NOTE | 2020-06-26 10:45 | Progress Note ---
DATE: 06/26/2020 Cardiology Progress Note SUBJECTIVE: Mr. Sotelo has had no angina overnight. His incisions are healing well. PHYSICAL EXAMINATION: VITAL SIGNS: Afebrile. Heart rate is 78, blood pressure is 124/70. CARDIOVASCULAR: Regular rhythm. No gallops. LUNGS: Clear to auscultation bilaterally. ABDOMEN: Soft. Bowel sounds heard adequately. TELEMETRY: Shows sinus rhythm, sinus bradycardia with PVCs. ASSESSMENT: Non ST-segment elevation, myocardial infarction, status post circumflex PCI. RECOMMENDATIONS: The patient is scheduled for angiography today for his left anterior descending artery. MD LINWOOD Coe/MODL /[id number]
--- NOTE | 2020-06-26 10:50 | NUR ---
1050Rt Sheath pull completed to Rt leg per food technologist Adrian ESQUEDA. stasis at 20min hold 4x4 and T[address]erm in place.Nol gross issues pain,pallor pressure or dysrhythmia.PPx2 present palpable Left groin has hematoma noted and additional held and hematoma quarter size pressed out. by technologist Flat and soft. and marked. Pt instructed on bleed precaution and flat time till 6pm.No other findings Tegaderm over site only PPx2 present palpable Pain pill given and tray ordered with snack tray given to pt Family assisting with eating.Tolerated po intake well. Pain scale 5/10. Moderate aching to groin sites. ds/rn
[2020-06-26] MEDS ORDERED: HYDROCODONE/APAP 5MG-325MG TAB ONE (11:34)
--- NOTE | 2020-06-26 11:35 | NUR ---
1135 void qs 200cc.Infused 700cc NS cath iv bag. Medicated Hydocodone 3325/gm po x 1 for pain 5/10 back and groin discomfort ds/rn
[2020-06-26] MEDS ORDERED: MORPHINE SULFATE INJ 4 MG/ML INJ 1ML ONE (12:11)
[2020-06-26] MEDS ORDERED: ONDANSETRON HCL 4 MG ORAL DISINTEGRATING TAB PO PRN (12:15)
--- NOTE | 2020-06-26 12:15 | NUR ---
1215 still c/o back discomfort and groin ache ivp 4mg Morphine sulfate to left iv site.For pain 7/10 flushed with NS and iv infusing at 75cchr for additional 1liter. ds/rn
--- NOTE | 2020-06-26 12:30 | NUR ---
1230 received notification that pt may transfer back to floor care 212 on telemetry per Pratik ESQUEDA. Fluids to continue for addition 1liter at 75cchr via controller.Left forearm iv site healthy.Stable s/p recovery [facility]. LAD stent placement by Dr Sabillon. Bilateral 6fr groin sheath site intact.No hematoma or bleed.Left groin groin soft,clear Tegaderm dressing on only,so visibility of old hematoma site possible Rt groin with 4x4 and clear Tegaderm. No gross issues of pain,pallor pressure or dysthymia.Transfer was completed with bed and RN escortx2 and telemetry in place to [facility] [id number] nurse.Report to tele room NSR with LAD placement.VS stable possible more fix needed.Pt was informed to keep head and legs down on bedrest till 5pm. Side rail ups and call light at bedside with bed in low position.ds/rn
--- NOTE | 2020-06-26 18:00 | NUR ---
ASSESSED PATIENT AND AUSCULTATED WHEEZES BILATERALLY. PATIENT WAS SAT UP HOB 30 DEGREES AND WAS INSTRUCTED TO TURN/COUGH/DEEP BREATHE. CALL PLACED TO DR. BELLA X2 NO ANSWER, LEFT VM. CALL PLACED TO DR. MAYCO GAXIOLA'S CELL PHONE, PROPERTY APPRAISER MD, NO ANSWER, LEFT VM.
--- NOTE | 2020-06-26 19:09 | NUR ---
RECEIVED CALLED FROM DR. MAYCO GAXIOLA. ORDERED RECEIVED FOR DUONEB RT TREATMENTS Q4PRN FOR WHEEZING AND SOB, D/C IV FLUIDS, PHENERGAN 12.5MG IV X1, AND STAT CXR.
[2020-06-26] MEDS: ALBUTEROL/IPRATROPIUM 3 ML NEB NEB SCH ×2 (19:25→23:00)
[2020-06-26] MEDS ORDERED: PROMETHAZINE 12.5MG/ NACL 0.9% 12.5 MG/50 ML BAG IV SCH (19:30)
--- NOTE | 2020-06-26 20:35 | Diagnostic Imaging Report ---
EXAMINATION: CHEST SINGLE (PORTABLE) INDICATION: BILATERAL WHEEZING COMPARISON: Chest x-ray on 06/24/2020. FINDINGS: TUBES and LINES: None. LUNGS: Normal lung volumes. There is diffuse prominent interstitial lung markings. No consolidations. PLEURA: No pleural effusion or pneumothorax. HEART AND MEDIASTINUM: The cardiomediastinal silhouette is unremarkable. BONES AND SOFT TISSUES: No acute osseous lesion. Soft tissues are unremarkable. UPPER ABDOMEN: No free air under the diaphragm. IMPRESSION: Diffuse prominent interstitial lung markings which may represent pulmonary vascular congestion or airway inflammation such as bronchitis. Signed by: Wil Carrera MD on 06/26/2020 8:32 PM
[2020-06-26] MEDS: ASPIRIN 81 MG CHEW TAB PO SCH (21:53)
[2020-06-26] MEDS: ATORVASTATIN 40 MG TAB PO SCH (21:53)
[2020-06-26] MEDS: PANTOPRAZOLE SOD 40 MG TABEC PO SCH (21:53)
--- NOTE | 2020-06-26 23:26 | NUR ---
pt resting comfortably in bed no signs of distress pt states no complaints at this time
[2020-06-27] MEDS: ALBUTEROL/IPRATROPIUM 3 ML NEB NEB SCH ×3 (03:00→10:15)
--- NOTE | 2020-06-27 03:35 | NUR ---
pt resting comfortably in bed no signs of distress pt states no complaints at this time
[2020-06-27 05:35] VITALS: BP 113/69
--- NOTE | 2020-06-27 06:55 | NUR ---
BEDSIDE SBAR REPORT RECEIVED FROM ECTOR ESQUEDA, PM SHIFT. PATIENT WAS FOUND RESTING IN BED EASILY AROUSED IN NO ACUTE DISTRESS. PATIENT IS AAOX4 AND DENIES ANY NEEDS AT THIS TIME. PATIENT WAS EDUCATED ON FALL RISK PRECAUTIONS AND TO USE TO CALL LIGHT FOR ANY CONCERNS. PATIENT VERBALIZED UNDERSTANDING. CALL LIGHT AND BELONGINGS PLACED NEARBY. WILL CONTINUE TO MONITOR.
[2020-06-27 07:00] VITALS: BP 130/73
[2020-06-27 08:00] VITALS: BP 130/73
[2020-06-27] MEDS: AMLODIPINE BESYLATE 5 MG TAB PO SCH (08:59)
[2020-06-27] MEDS: METOPROLOL SUCCINATE 25 MG TAB XL PO SCH (08:59)
[2020-06-27] MEDS: PRASUGREL 10 MG TAB PO SCH (08:59)
[2020-06-27] MEDS: OLMESARTAN 20 MG TAB PO SCH (08:59)
--- NOTE | 2020-06-27 11:06 | Discharge Summary ---
DISCHARGE DIAGNOSES: 1. Hypertension. 2. Hyperlipidemia. 3. Chronic kidney disease. 4. Coronary artery disease, status post percutaneous coronary intervention. 5. Tobacco use. 6. Chronic obstructive pulmonary disease. DISCHARGE MEDICATIONS: See medication reconciliation form. DISCHARGE ACTIVITY: As tolerated. DISCHARGE DISPOSITION: To home. DISCHARGE FOLLOWUP: Two weeks. HOSPITAL COURSE: This is a 64-year-old man with a history of hypertension, hyperlipidemia, and tobacco use, who was evaluated as an outpatient with a stress test and severe persistent ongoing chest discomfort. He was admitted to the hospital and underwent percutaneous coronary intervention of his left circumflex and left anterior descending coronary artery. He is currently chest pain-free and feeling better. He was discharged to home in stable condition. DO BRISSA Naik/MODL /[id number]
[2020-06-27 11:45] VITALS: BP 115/79
--- NOTE | 2020-06-27 12:00 | NUR ---
PATIENT DISCHARGED HOME VIA PRIVATE VEHICLE. PERIPHERAL IV DISCONTINUED; CATHETER TIP INTACT WITHOUT RESISTANCE. DRY DRESSING APPLIED. PATIENT RECEIVED DISCHARGE SUMMARY, WRITTEN PRESCRIPTIONS, AND EDUCATION LEAFLETS.
== END 2020-06-27 12:14 | disposition home or self-care (01) | DRG 247 ==
LOC: ER 20:38 → ERHOLD 22:37 → MED/SURG2 23:30
PROVIDERS: ADMIT Internal Medicine Interventional Cardiology; ATTEND Internal Medicine Interventional Cardiology
PROC: 027034Z Dilation of Coronary Artery, One Artery with Drug-eluting Intraluminal Device, Percutaneous Approach (ICD-10-PCS; principal; 2020-06-25)
PROC: B41D1ZZ Fluoroscopy of Aorta and Bilateral Lower Extremity Arteries using Low Osmolar Contrast (ICD-10-PCS; 2020-06-25)
PROC: B2111ZZ Fluoroscopy of Multiple Coronary Arteries using Low Osmolar Contrast (ICD-10-PCS; 2020-06-25)
PROC: B2151ZZ Fluoroscopy of Left Heart using Low Osmolar Contrast (ICD-10-PCS; 2020-06-25)
PROC: 4A033BC Measurement of Arterial Pressure, Coronary, Percutaneous Approach (ICD-10-PCS; 2020-06-25)
PROC: 027035Z Dilation of Coronary Artery, One Artery with Two Drug-eluting Intraluminal Devices, Percutaneous Approach (ICD-10-PCS; 2020-06-26)
DX: I21.4 Non-ST elevation (NSTEMI) myocardial infarction (principal); I71.4 Abdominal aortic aneurysm, without rupture; I25.110 Atherosclerotic heart disease of native coronary artery with unstable angina pectoris; I73.9 Peripheral vascular disease, unspecified; J44.9 Chronic obstructive pulmonary disease, unspecified; Z72.0 Tobacco use; I12.9 Hypertensive chronic kidney disease with stage 1 through stage 4 chronic kidney disease, or unspecified chronic kidney disease; N18.9 Chronic kidney disease, unspecified; E78.5 Hyperlipidemia, unspecified; Z88.1 Allergy status to other antibiotic agents; Z88.8 Allergy status to other drugs, medicaments and biological substances
CPT/HCPCS: 36415; 71045; 75630; 76937; 80048; 80053; 80061; 82550; 82553; 83880; 84484; 85025; 85610; 85730; 92928; 92929; 93005; 93454; 93458; 93571; 94640; 99152; 99153; 99284; C1725; C1753; C1766; C1769; C1874; C1887; C1894; C2630; J0153; J0583; J1644; J2001; J2250; J2270; J2550; J3010; J7030; Q0162; Q9967; U0002

== ENCOUNTER → 2020-07-13 | Outpatient (CLI) | payer OTHER ==
[~2020-07-13] MED LIST: AMLODIPINE-OLM1 EACH PO; ASPIRIN CHEW81 MG PO; IOPAMIDOL 370 MG/ML 200 ML INFUS..BTL INJ ONE; OMEPRAZOLE40 MG PO; PRAVACHOL20 MG PO; SODIUM CHLORIDE 0.9% 100 ML ONE; SODIUM CHLORIDE 0.9% 500ML 500 ML ONE
[2020-07-13 17:09] LABS: CREATININE, SERUM 1.59 mg/dL (0.72-1.25)
--- NOTE | 2020-07-13 18:49 | Diagnostic Imaging Report ---
Procedure: CTA of abdomen and pelvis with intravenous contrast administration. CPT code number: 40695,09764 History: Abdominal aortic aneurysm. Technique: Multidetector helical CT angiography was carried out from above the celiac axis to the level of the lesser trochanters following dynamic intravenous contrast administration. Scan timing was performed using automated bolus tracking/SMART Prep. 3-D angiographic image reconstruction was performed using an [employer] windows workstation. Parenchymal imaging is limited by the arterial phase of contrast administration RADIATION DOSE: Total DLP: 476.42 mGy*cm Estimated effective dose: (DLP x 0.015 x size factor) mSv CTDIvol has been reviewed. It is below the limits set by the Radiation Protocol Committee (RPC). Dose reduction techniques used: Automated exposure control, adjustment of the mAs and/or kVp according to patient size, standardized low-dose protocol, and/or iterative reconstruction technique. Comparison: None Findings: Lung bases: Diffuse air trapping suggestive of small airways disease. Diffuse bronchial wall thickening without bronchiectasis. Minimal reticulation in the inferior aspect of the right middle lobe suggestive of scarring. Visualized portion of the mediastinum is normal. Liver: No hypervascular mass. Spleen: Normal in attenuation and size without mass Pancreas: No mass or ductal dilatation. Gallbladder: Normal. Adrenal glands: No mass. Retroperitoneum: No lymphadenopathy or retroperitoneal inflammation. Kidneys: Right kidney: Calculus in the upper pole measures 5 mm. Low attenuating lesion the lateral upper pole measures 1.4 x 1.2 cm. It contains a small focus of enhancement at its inferior aspect. Left kidney: Lower pole calculus measures 5 mm. No enhancing mass or hydronephrosis Bowel and Mesentery: Stomach: Normal. Small bowel: Normal in diameter with normal wall thickness. Large bowel: Normal in diameter with normal wall thickness. Appendix: Normal.. Bladder: Underdistended. Prostate gland/seminal vesicles: Unremarkable Lymph nodes: No enlarged mesenteric or retroperitoneal lymph nodes. Peritoneum/retroperitoneum: No free fluid or fluid collection. Bones: Degenerative changes of the sacroiliac joints. Mild degenerative changes of the spine. No focal osseous lesions Soft tissues: Unremarkable CT Angiogram attention aorta: Visceral vessels: Celiac axis: Mild atherosclerotic plaque at the origin. Mild stenosis.. SMA: Mild soft plaque in the proximal SMA. Mild stenosis at this level. No filling defects distally. The right hepatic artery arises from the SMA. Renal arteries: Single arteries supply each kidney with early branching of intrarenal artery. Moderate burden of atherosclerotic plaque at the origins. Inferior mesenteric artery: Patent. Aorta measurements: Aorta at the diaphragm: 2.9 x 3.0 cm Aorta at the celiac axis: 2.9 x 2.6 cm Aorta at the cranial most renal artery: 2.3 x 2.5 cm Aorta at the caudal-most renal artery: 2.4 x 2.1 cm. Infrarenal aorta: Measures 4.3 x 4.5 cm in maximum dimension. Aorta at the bifurcation: 2.8 x 2.7 cm Iliac arteries: Right common iliac artery: 1.9 cm in maximum dimension Left common iliac artery: 1.7 cm in maximum dimension. Morphology: Diffuse atherosclerotic plaque, most significant in the infrarenal aorta. Fusiform infrarenal aortic aneurysm extends for approximately 7.9 cm and terminates just above the aortic bifurcation. Proximal landing zone is approximately 1.8 cm inferior to the origin of the right renal artery. There is circumferential atherosclerotic plaque containing a few mural calcifications. The APOLINAR arises from the aneurysm. There are several dissection flaps in the right common iliac artery without evidence of occlusion. No evidence of dissection in the left common iliac artery. Femoral arteries: No evidence of aneurysmal dilatation. Scattered atherosclerotic plaque. IMPRESSION: 1. Infrarenal aortic aneurysm as described above. Bilateral common iliac artery aneurysms. 2. Several dissection flaps in the proximal right common iliac artery without evidence of occlusion. 3. Cyst with potential enhancing mural nodule in the upper pole of the right kidney. Recommend further characterization with CT or MRI of the kidneys. 4. Bilateral intrarenal calculi. No obstructive uropathy. 5. Diffuse bronchial wall thickening suggestive of chronic bronchitis. Small airways disease. Signed by: Dr. Rosana Echols MD on 07/13/2020 6:46 PM
== END ==
LOC: CT 16:15
PROVIDERS: ATTEND Internal Medicine Interventional Cardiology
DX: I71.4 Abdominal aortic aneurysm, without rupture (principal)
CPT/HCPCS: 36415; 74174; 82565; 84520; J7040; J7050; Q9967

== ENCOUNTER → 2020-07-21 | Day surgery (SDC) | payer OTHER ==
[2020-07-16 13:33] LABS: BASOPHILS # (AUTO) 0.1 (0.0-0.1); BASOPHILS % 0.9 % (0.0-1.0); EOSINOPHILS # (AUTO) 0.8 (0.0-0.4); EOSINOPHILS % 7.2 % (0.0-6.0); HEMATOCRIT 35.5 % (38.2-49.6); HEMOGLOBIN 11.2 g/dL (14.0-18.0); LYMPHOCYTES # (AUTO) 2.4 (1.0-3.2); LYMPHOCYTES % 23.2 % (18.0-39.1); MEAN CORPUSCULAR HEMOGLOBIN 27.8 pg (28-32); MEAN CORPUSCULAR HGB CONC 31.5 g/dL (31-35); MEAN CORPUSCULAR VOLUME 88.1 fL (81-99); MONOCYTES # (AUTO) 0.7 (0.2-0.8); MONOCYTES % 6.6 % (4.4-11.3); NEUTROPHILS # (AUTO) 6.5 (2.1-6.9); NEUTROPHILS % 61.8 % (38.7-80.0); PLATELET COUNT 366 x10e3/uL (140-360); RED BLOOD COUNT 4.03 x10e6/uL (4.3-5.7); RED CELL DISTRIBUTION WIDTH 15.1 % (11.7-14.4)
[2020-07-16 13:53] LABS: ALBUMIN 4.3 g/dL (3.5-5.0); ALBUMIN/GLOBULIN RATIO 1.3 (0.8-2.0); ANION GAP 13.2 mmol/L (8-16); CALCIUM 9.3 mg/dL (8.4-10.2); CREATININE, SERUM 1.61 mg/dL (0.72-1.25); POTASSIUM 4.2 mmol/L (3.5-5.1)
[2020-07-21] VITALS (11 sets, daily range): BP systolic 104–149; BP diastolic 44–77
[~2020-07-21] VITALS: Ht 175.3 cm; Wt 86.2 kg
[~2020-07-21] MED LIST changes: +ALPRAZOLAM 0.5 MG TAB ONE; +AMLODIPINE BESYL5 MG PO; +ASPIRIN 325 MG TAB ONE; +ATORVASTATIN CA40 MG PO; +BENICAR20 MG PO; +BIVALRIUDIN 250 MG/VIAL VIAL IV ONE; +DIPHENHYDRAMINE HCL 25 MG CAP ONE; +EFFIENT10 MG PO; +FENTANYL CITRATE/PF 100MCG/2 ML INJ ONE; +HEPARIN SOD/SOD CHLORIDE 2,000 ML ONE; +LIDOCAINE HCL 2% LOCAL 20 ML VIAL ONE; +METOPROLOL SUCC25 MG PO; +MIDAZOLAM HCL 2 MG/2 ML VIAL ONE; +MULTI-VITAMIN1 EACH PO; +PRASUGREL 10 MG TAB ONE; -SODIUM CHLORIDE 0.9% 100 ML ONE; +SODIUM CHLORIDE 0.9% 1000ML 1,000 ML ONE; -SODIUM CHLORIDE 0.9% 500ML 500 ML ONE; +SODIUM CHLORIDE 0.9% 50ML 50 ML ONE
== END | disposition home or self-care (01) ==
LOC: CATH LAB 11:17
PROVIDERS: ATTEND Internal Medicine Interventional Cardiology
DX: I25.118 Atherosclerotic heart disease of native coronary artery with other forms of angina pectoris (principal); R94.39 Abnormal result of other cardiovascular function study; I73.9 Peripheral vascular disease, unspecified; I10 Essential (primary) hypertension; I71.4 Abdominal aortic aneurysm, without rupture; E78.00 Pure hypercholesterolemia, unspecified; J44.9 Chronic obstructive pulmonary disease, unspecified; F17.200 Nicotine dependence, unspecified, uncomplicated; Z01.812 Encounter for preprocedural laboratory examination; Z11.59 Encounter for screening for other viral diseases; Z79.82 Long term (current) use of aspirin; Z82.49 Family history of ischemic heart disease and other diseases of the circulatory system
CPT/HCPCS: 36415; 76937; 80053; 85025; 92928; 93458; C1769; C1874; J0583; J2001; J2250; J3010; J7030; Q9967; U0002; 99152

== ENCOUNTER → 2020-08-11 | Day surgery (SDC) | payer OTHER ==
[2020-08-06 10:19] LABS: BASOPHILS # (AUTO) 0.1 (0.0-0.1); BASOPHILS % 0.9 % (0.0-1.0); EOSINOPHILS # (AUTO) 0.6 (0.0-0.4); EOSINOPHILS % 5.6 % (0.0-6.0); HEMATOCRIT 38.4 % (38.2-49.6); HEMOGLOBIN 12.2 g/dL (14.0-18.0); LYMPHOCYTES # (AUTO) 2.4 (1.0-3.2); MEAN CORPUSCULAR HEMOGLOBIN 28.6 pg (28-32); MEAN CORPUSCULAR HGB CONC 31.8 g/dL (31-35); MEAN CORPUSCULAR VOLUME 90.1 fL (81-99); MONOCYTES # (AUTO) 0.6 (0.2-0.8); MONOCYTES % 6.3 % (4.4-11.3); NEUTROPHILS # (AUTO) 6.2 (2.1-6.9); NEUTROPHILS % 62.9 % (38.7-80.0); PLATELET COUNT 325 x10e3/uL (140-360); RED BLOOD COUNT 4.26 x10e6/uL (4.3-5.7); RED CELL DISTRIBUTION WIDTH 15.8 % (11.7-14.4)
[2020-08-06 10:38] LABS: ALBUMIN 3.8 g/dL (3.5-5.0); ALBUMIN/GLOBULIN RATIO 0.9 (0.8-2.0); ANION GAP 14.7 mmol/L (8-16); CALCIUM 9.5 mg/dL (8.4-10.2); CREATININE, SERUM 1.57 mg/dL (0.72-1.25); POTASSIUM 4.7 mmol/L (3.5-5.1)
--- NOTE | 2020-08-10 12:40 | NUR ---
Pt contacted by phone for interview of scheduled procedure. Review of medical history and current medications. Procedural consent on day of arrival to be completed, pre-op orders, and twice bathing education completed. All questions clarified and or answered where appropriate. pt verbalizes understanding to include day of procedure expectations and practice social distancing. Pt aware to be using provided/ personal mask for COVID-19 mitigation. Pt to bring medication list day of . - [facility] [place]
[~2020-08-11] VITALS: Ht 175.3 cm; Wt 86.2 kg
[2020-08-11] VITALS (11 sets, daily range): BP systolic 104–137; BP diastolic 55–88
[~2020-08-11] MED LIST changes: +ADENOSINE 3MG/1ML 30ML VIAL ONE; +HEPARIN SOD (PORCINE) 1000 UNIT/ML 30ML ONE; +VERAPAMIL HCL 2.5 MG/ML 2 ML VIAL ONE
--- NOTE | 2020-08-11 10:50 | NUR ---
1050a bedside report received from YIN Snow.Identiferx2. Alert oriented and appropriate, PERRLA, respirations even and unlabored to room air. Pulses x4 extremities equal and strong. Pedal pulses PT/DP x4 and marked. Cap fill brisk < 3 sec. Tr band approach air removal 1300pm No maggie issuea pain pallor pressure or dysrhythmia.OM stent placement and PCI. Skin warm and dry integrity appears D/I. IV 20g to left hand at 100cchr, presents healthy w/o s/s of infiltration or complaint. Abdomen soft and supple. pt offered toileting, denies need to urinate or defecate. No personal affects with patient. Family at BS. Pt and family verbalizes understanding of POC. Currently w/o complaint of pain or need. tabitha/yin
--- NOTE | 2020-08-11 12:20 | Operative Report ---
DATE OF PROCEDURE: 08/11/2020 SURGEON: William Sabillon MD INDICATION: Coronary artery disease, angina, staged percutaneous coronary intervention. COMPLICATIONS: None. BLOOD LOSS: Minimal. RECOMMENDATIONS: 1. Dual antiplatelet therapy for life. 2. Medical therapy for intermediate ostial circumflex stenosis. PROCEDURES PERFORMED: 1. Ultrasound-guided access in the right radial artery with sheath placement. 2. Conscious sedation administration, hemodynamic and neurological monitoring and recovery by dental laboratory manager RN, supervision by MD, 65 minutes. 3. Left heart catheterization, selective coronary angiography. 4. Fractional flow reserve measurement and circumflex coronary artery. 5. Deployment of mid circumflex stent, drug-eluting. 6. Deployment of right wrist TR band. DESCRIPTION OF PROCEDURE: Access obtained in the right radial artery using ultrasound guidance. A 6-Lithuanian sheath was placed. The patient received intravenous Angiomax, oral aspirin and prasugrel for anticoagulation. The left main was cannulated using an XB3.5, 6-Lithuanian guiding catheter. Following normalization, an FFR wire was then crossed into the proximal circumflex artery, DFR was 0.95. The lesion was felt to be insignificant. The lesion wire was then advanced across the lesion in the obtuse marginal branch that was 70%, DFR was 0.89. This lesion was felt to be significant. A straight single 2.5 x 12 mm synergy stent was deployed at 24 atmospheres. Excellent end result, less than 10% residual stenosis, GAGE-3 flow. No complications. Wire and guide sheath removed. TR band applied, the patient discharged home. MD LINWOOD Coe/MODL /[id number]
--- NOTE | 2020-08-11 13:00 | NUR ---
1300pRADIAL Compression removal: Initial Cuff volume 12 cc 1300pm -2cc Removed No hematoma/bleeding noted with normal neurovascular function. 1315p -5 cc Removed No hematoma/ bleeding noted with normal neurovascular function. 1330p -5 cc Removed No hematoma/bleeding noted with normal neurovascular function. Air removal completed. Stasis achieved sterile 2x2,Tegaderm, Coban dressing No hematoma, bleeding noted with normal neurovascular function. Pt instructed on POC. Ds/Rn
--- NOTE | 2020-08-11 16:00 | NUR ---
1600p Pt meets DC criteria. Skin assessed for s/s of complication and presence of hematoma. Skin warm, dry, no discolor, and pulses present. IV removed from left hand. Distal tip appears intact. VS WNL. Pt denies pain, sob, or need at this time. Family at BS. Review of discharge paperwork and follow up instructions. verbalized understanding. Pt to wheelchair and transported to front of hospital. Transferred to private vehicle under own strength w/o incident with DC paperwork in hand. - ds/rn
== END | disposition home or self-care (01) ==
LOC: CATH LAB 08:26
PROVIDERS: ATTEND Internal Medicine Interventional Cardiology
DX: I25.118 Atherosclerotic heart disease of native coronary artery with other forms of angina pectoris (principal); I73.9 Peripheral vascular disease, unspecified; I10 Essential (primary) hypertension; I71.4 Abdominal aortic aneurysm, without rupture; E78.00 Pure hypercholesterolemia, unspecified; J44.9 Chronic obstructive pulmonary disease, unspecified; F17.200 Nicotine dependence, unspecified, uncomplicated; Z01.812 Encounter for preprocedural laboratory examination; Z11.59 Encounter for screening for other viral diseases; Z79.82 Long term (current) use of aspirin; Z82.49 Family history of ischemic heart disease and other diseases of the circulatory system
CPT/HCPCS: 36415; 76937; 80053; 85025; 92928; 93571; C1753; C1874; J0153; J0583; J1644; J2001; J2250; J3010; J7030; Q9967; U0002; 99152; 99153

== ENCOUNTER → 2020-09-01 | Day surgery (SDC) | payer OTHER ==
[2020-08-27 10:01] LABS: BASOPHILS # (AUTO) 0.1 (0.0-0.1); BASOPHILS % 0.8 % (0.0-1.0); EOSINOPHILS # (AUTO) 0.6 (0.0-0.4); EOSINOPHILS % 5.5 % (0.0-6.0); HEMATOCRIT 38.9 % (38.2-49.6); HEMOGLOBIN 11.4 g/dL (14.0-18.0); LYMPHOCYTES # (AUTO) 2.2 (1.0-3.2); LYMPHOCYTES % 22.1 % (18.0-39.1); MEAN CORPUSCULAR HEMOGLOBIN 28.1 pg (28-32); MEAN CORPUSCULAR HGB CONC 29.3 g/dL (31-35); MONOCYTES # (AUTO) 0.7 (0.2-0.8); MONOCYTES % 6.9 % (4.4-11.3); NEUTROPHILS # (AUTO) 6.5 (2.1-6.9); NEUTROPHILS % 64.4 % (38.7-80.0); PLATELET COUNT 322 x10e3/uL (140-360); RED BLOOD COUNT 4.05 x10e6/uL (4.3-5.7); RED CELL DISTRIBUTION WIDTH 16.1 % (11.7-14.4)
[2020-08-27 10:35] LABS: ALBUMIN 3.6 g/dL (3.5-5.0); ALBUMIN/GLOBULIN RATIO 0.9 (0.8-2.0); ANION GAP 12.7 mmol/L (8-16); CALCIUM 9.6 mg/dL (8.4-10.2); CREATININE, SERUM 1.49 mg/dL (0.72-1.25); POTASSIUM 4.7 mmol/L (3.5-5.1)
[2020-09-01] VITALS (16 sets, daily range): BP systolic 94–125; BP diastolic 57–80
[~2020-09-01] VITALS: Ht 175.3 cm; Wt 86.2 kg
[~2020-09-01] MED LIST changes: -ADENOSINE 3MG/1ML 30ML VIAL ONE; -ASPIRIN 325 MG TAB ONE; -BIVALRIUDIN 250 MG/VIAL VIAL IV ONE; +CEFAZOLIN SOD 1 GM VIAL ONE; +DIPHENHYDRAMINE HCL INJ 50 MG/ML VIAL ONE; -HEPARIN SOD (PORCINE) 1000 UNIT/ML 30ML ONE; +IOPAMIDOL 300MG/ML 100 ML INFUS..BTL IV ONE; -PRASUGREL 10 MG TAB ONE; +PROTAMINE SULFATE 10 MG/ML 5 ML VIAL ONE; -VERAPAMIL HCL 2.5 MG/ML 2 ML VIAL ONE
--- NOTE | 2020-09-01 11:10 | NUR ---
pt in CCL 9 , prepped for procedure. Alert oriented and appropriate, PERRLA, respirations even and unlabored to room air. Pulses x4 extremities equal and palpable . Cap fill brisk < 3 sec. bilateral groin prepped for procedure. skin intact. Skin warm and dry integrity appears intact in general. IV 20g to left forearm and presents healthy w/o s/s of infiltration or complaint. Abdomen soft and supple. pt offered toileting, denies need to urinate or defecate. Personal affects with patient. Family (sister) to be called post procedure . Pt verbalizes understanding of POC. Educated clinical nutritionist light use. bed low and locked, side rails up x2 and call light at side. Benadryl 50mg and Xanax 0.5mg PO given preop Awaiting for physician arrival/procedure time. pt using provided/ personal mask for COVID-19 mitigation. -cgf
--- NOTE | 2020-09-01 13:23 | Operative Report ---
DATE OF PROCEDURE: 09/01/2020 SURGEON: William Sabillon MD INDICATIONS: Peripheral arterial disease, claudication of the left lower extremity. PROCEDURES PERFORMED: 1. Abdominal aorta catheter placement, abdominal aortogram. 2. Bilateral lower extremity angiograms. 3. Third-order catheter placed in the right femoral artery to left superficial femoral artery. 4. Atherectomy and angioplasty of left anterior tibial artery. COMPLICATIONS: None. BLOOD LOSS: Minimal. RECOMMENDATIONS: Continued dual antiplatelet therapy. DESCRIPTION OF PROCEDURE: Access obtained in the right femoral artery. Abdominal aortogram demonstrated aneurysm abdominal aorta and bilateral common iliac arteries. The sheath was advanced from the right femoral artery to the left superficial femoral artery, 90% proximal left anterior tibial artery, 50% proximal left superficial femoral artery stenosis. A decision was made to intervene on the anterior tibial artery. The lesion was crossed using a Command wire. Directional atherectomy using a Optimal RadiologykOne device was performed. Balloon angioplasty with a 3.5 mm balloon. Excellent end result, less than 10% residual stenosis, three- vessel runoff. No complications. Wire and guide sheath removed. Sheath was removed under manual pressure. The patient discharged home same day. William Sabillon MD KSB/MODL /[id number]
--- NOTE | 2020-09-01 15:00 | NUR ---
Report received from Miguel Goss RN. Alert oriented and appropriate, PERRLA, respirations even and unlabored to room air. Pulses x4 extremities equal and palpable . Cap fill brisk < 3 sec. + neurovascular function of right leg present. No s/s of swelling or discolor at site. VS trend reviewed and medications given. Skin warm and dry integrity appears intact in general. IV left hand presents healthy w/o s/s of infiltration or complaint. Abdomen soft and supple. pt offered toileting, denies need to urinate or defecate. Resting supine. Personal affects with patient and sister at bedside. Pt verbalizes understanding of POC. Educated construction grip light use. bed low and locked, side rails up x2 and call light at side. bedside telemetry assignment. pt using provided/ personal mask for COVID-19 mitigation. transfer of care -cgf
--- NOTE | 2020-09-01 17:55 | NUR ---
Pt meets discharge criteria. VS wnl, alert and oriented. Pt and Family Understands discharge instruction. Overall general assess w/o gross outliers. Skin warm, dry, and intact. Right femoral dressing soft w/o s/s of hematoma. + neurovascular function of right leg present. IV removed and appears distal tip is intact, Sebas Castillo director of midwifery/staff midwife member verifying. Pt maintains mask on for COVID 19 precautions being taken by wheel chair to awaiting car. Transfers w/o gross distress with discharge paperwork in hand.-cgf
== END | disposition home or self-care (01) ==
LOC: CATH LAB 10:21
PROVIDERS: ATTEND Internal Medicine Interventional Cardiology
DX: I70.212 Atherosclerosis of native arteries of extremities with intermittent claudication, left leg (principal); Z01.812 Encounter for preprocedural laboratory examination; Z20.828 Contact with and (suspected) exposure to other viral communicable diseases
CPT/HCPCS: 36415; 37229; 80053; 85025; C1766; C1887; J0690; J1200; J2001; J2250; J2720; J3010; J7030; Q9967; U0002; 36247; 37228; 75716; 99152; 99153

== ENCOUNTER 2021-04-22 15:23 | Inpatient (IN) | payer OTHER ==
[~2021-04-22] VITALS: Ht 175.3 cm; Wt 86.2 kg
[~2021-04-22 15:23] MED LIST changes: -ALPRAZOLAM 0.5 MG TAB ONE; -CEFAZOLIN SOD 1 GM VIAL ONE; -DIPHENHYDRAMINE HCL 25 MG CAP ONE; -DIPHENHYDRAMINE HCL INJ 50 MG/ML VIAL ONE; -FENTANYL CITRATE/PF 100MCG/2 ML INJ ONE; -HEPARIN SOD/SOD CHLORIDE 2,000 ML ONE; -IOPAMIDOL 300MG/ML 100 ML INFUS..BTL IV ONE; -IOPAMIDOL 370 MG/ML 200 ML INFUS..BTL INJ ONE; -LIDOCAINE HCL 2% LOCAL 20 ML VIAL ONE; -MIDAZOLAM HCL 2 MG/2 ML VIAL ONE; -PROTAMINE SULFATE 10 MG/ML 5 ML VIAL ONE; -SODIUM CHLORIDE 0.9% 1000ML 1,000 ML ONE; -SODIUM CHLORIDE 0.9% 50ML 50 ML ONE
[2021-04-22 16:20] LABS: BASOPHILS % 0.5 % (0.0-1.0); EOSINOPHILS # (AUTO) 0.4 (0.0-0.4); LYMPHOCYTES # (AUTO) 3.1 (1.0-3.2); LYMPHOCYTES % 35.6 % (18.0-39.1); MEAN CORPUSCULAR HEMOGLOBIN 22.1 pg (28-32); MEAN CORPUSCULAR VOLUME 76.3 fL (81-99); MONOCYTES # (AUTO) 0.7 (0.2-0.8); MONOCYTES % 7.7 % (4.4-11.3); NEUTROPHILS # (AUTO) 4.4 (2.1-6.9); NEUTROPHILS % 50.7 % (38.7-80.0); PLATELET COUNT 527 x10e3/uL (140-360); RED CELL DISTRIBUTION WIDTH 17.2 % (11.7-14.4)
[2021-04-22 16:23] LABS: HEMATOCRIT 18.3 % (38.2-49.6); HEMOGLOBIN 5.3 g/dL (14.0-18.0)
[2021-04-22 16:24] LABS: INR 0.9; PROTHROMBIN TIME 12.7 seconds (11.9-14.5)
[2021-04-22 16:25] LABS: PARTIAL THROMBOPLASTIN TIME 25.2 seconds (23.8-35.5)
[2021-04-22 16:31] LABS: ALBUMIN 3.5 g/dL (3.5-5.0); ALBUMIN/GLOBULIN RATIO 0.9 (0.8-2.0); ANION GAP 17.9 mmol/L (8-16); CALCIUM 8.7 mg/dL (8.4-10.2); CREATININE, SERUM 2.42 mg/dL (0.72-1.25); POTASSIUM 4.9 mmol/L (3.5-5.1)
[2021-04-22 16:44] LABS: % IRON SATURATION 3 % (15-50); IRON 16 ug/dL (65-175); TOTAL IRON BINDING CAPACITY 498 ug/dL (261-478); TRANSFERRIN 356 mg/dL (174-364)
[2021-04-22] MEDS ORDERED: SODIUM CHLORIDE 0.9% 250ML 250 ML IV ONE ×2 (17:15)
[2021-04-22] MEDS ORDERED: SODIUM CHLORIDE 0.9% 250ML 250 ML ONE (22:28)
[2021-04-23 06:22] LABS: BASOPHILS # (AUTO) 0.1 (0.0-0.1); BASOPHILS % 0.7 % (0.0-1.0); EOSINOPHILS # (AUTO) 0.5 (0.0-0.4); EOSINOPHILS % 5.7 % (0.0-6.0); HEMATOCRIT 24.3 % (38.2-49.6); HEMOGLOBIN 7.3 g/dL (14.0-18.0); LYMPHOCYTES # (AUTO) 2.7 (1.0-3.2); LYMPHOCYTES % 29.8 % (18.0-39.1); MEAN CORPUSCULAR HEMOGLOBIN 23.3 pg (28-32); MEAN CORPUSCULAR VOLUME 77.6 fL (81-99); MONOCYTES # (AUTO) 0.8 (0.2-0.8); MONOCYTES % 8.8 % (4.4-11.3); NEUTROPHILS % 54.6 % (38.7-80.0); PLATELET COUNT 565 x10e3/uL (140-360); RED BLOOD COUNT 3.13 x10e6/uL (4.3-5.7); RED CELL DISTRIBUTION WIDTH 17.3 % (11.7-14.4)
[2021-04-23 06:59] LABS: ALBUMIN 3.4 g/dL (3.5-5.0); ALBUMIN/GLOBULIN RATIO 0.9 (0.8-2.0); ANION GAP 16.7 mmol/L (8-16); CALCIUM 9.2 mg/dL (8.4-10.2); CREATININE, SERUM 1.76 mg/dL (0.72-1.25); POTASSIUM 4.7 mmol/L (3.5-5.1)
[2021-04-23 10:45] VITALS: BP 124/63
[2021-04-23] MEDS: PANTOPRAZOLE SOD 40 MG TABEC PO SCH (14:00)
[2021-04-23] MEDS: NICOTINE 21 MG/EA PATCH TOP SCH (14:35)
[2021-04-23] MEDS: SODIUM FERRIC GLUCONATE COMPLX 125 MG in SODIUM CHLORIDE 0.9% 100 ML 100 ML IV SCH (14:35)
[2021-04-23] MEDS ORDERED: SODIUM CHLORIDE 0.9% 250ML 250 ML ONE (14:58)
[2021-04-23 15:16] VITALS: BP 134/62
[2021-04-23 19:24] VITALS: BP 132/77
[2021-04-23 20:00] VITALS: BP 132/77
[2021-04-23] MEDS ORDERED: MELATONIN 3 MG TAB PO PRN (21:00)
[2021-04-23] MEDS: ATORVASTATIN 40 MG TAB PO SCH (21:10)
[2021-04-23] MEDS: TEMAZEPAM 15 MG CAP PO PRN (22:07)
[2021-04-23 23:26] VITALS: BP 113/62
[2021-04-24] MEDS ORDERED: BISACODYL 5 MG TAB EC PO ONE ×3 (02:00→03:00)
[2021-04-24] MEDS ORDERED: CITRATE OF MAGNESIA 300ML BOTTLE PO ONE ×2 (05:00→07:00)
[2021-04-24 05:32] VITALS: BP 124/74
[2021-04-24 06:20] LABS: BASOPHILS # (AUTO) 0.1 (0.0-0.1); BASOPHILS % 0.5 % (0.0-1.0); EOSINOPHILS # (AUTO) 0.5 (0.0-0.4); EOSINOPHILS % 4.5 % (0.0-6.0); HEMATOCRIT 26.6 % (38.2-49.6); HEMOGLOBIN 8.1 g/dL (14.0-18.0); LYMPHOCYTES # (AUTO) 2.3 (1.0-3.2); LYMPHOCYTES % 22.4 % (18.0-39.1); MEAN CORPUSCULAR HEMOGLOBIN 23.6 pg (28-32); MEAN CORPUSCULAR HGB CONC 30.5 g/dL (31-35); MEAN CORPUSCULAR VOLUME 77.6 fL (81-99); MONOCYTES # (AUTO) 0.8 (0.2-0.8); NEUTROPHILS # (AUTO) 6.5 (2.1-6.9); PLATELET COUNT 555 x10e3/uL (140-360); RED BLOOD COUNT 3.43 x10e6/uL (4.3-5.7)
[2021-04-24 07:22] LABS: ANION GAP 17.3 mmol/L (8-16); CALCIUM 9.2 mg/dL (8.4-10.2); CREATININE, SERUM 1.42 mg/dL (0.72-1.25); POTASSIUM 4.3 mmol/L (3.5-5.1)
[2021-04-24] MEDS: PANTOPRAZOLE SOD 40 MG TABEC PO SCH (07:39)
[2021-04-24 07:58] VITALS: BP 105/64
[2021-04-24 08:10] VITALS: BP 105/64
[2021-04-24 12:40] VITALS: BP 147/85
[2021-04-24] MEDS ORDERED: LIDOCAINE HCL 2% LOCAL INJ 5 ML SDV VIAL INJ ONE (13:41)
[2021-04-24] MEDS ORDERED: PROPOFOL IV EMULSION 10 MG/ML 20 ML VIAL ONE (13:41)
[2021-04-24] MEDS: AMLODIPINE BESYLATE 5 MG TAB PO SCH (13:49)
[2021-04-24] MEDS: SODIUM FERRIC GLUCONATE COMPLX 125 MG in SODIUM CHLORIDE 0.9% 100 ML 100 ML IV SCH (13:49)
[2021-04-24] MEDS: METOPROLOL SUCCINATE 25 MG TAB XL PO SCH (13:49)
[2021-04-24] MEDS: FUROSEMIDE INJ 10 MG/ML 2 ML VIAL IV SCH ×2 (13:50→17:17)
[2021-04-24] MEDS: NICOTINE 21 MG/EA PATCH TOP SCH (13:54)
[2021-04-24 15:39] VITALS: BP 143/81
[2021-04-24 20:00] VITALS: BP 124/74
[2021-04-24] MEDS: ATORVASTATIN 40 MG TAB PO SCH (20:53)
[2021-04-24] MEDS: TEMAZEPAM 15 MG CAP PO PRN (22:04)
[2021-04-25] VITALS: BP 127/69
[2021-04-25 04:00] VITALS: BP 131/69
[2021-04-25 06:15] LABS: BASOPHILS # (AUTO) 0.1 (0.0-0.1); BASOPHILS % 0.7 % (0.0-1.0); EOSINOPHILS # (AUTO) 0.4 (0.0-0.4); EOSINOPHILS % 3.4 % (0.0-6.0); HEMOGLOBIN 8.9 g/dL (14.0-18.0); LYMPHOCYTES # (AUTO) 2.6 (1.0-3.2); MEAN CORPUSCULAR HEMOGLOBIN 23.8 pg (28-32); MEAN CORPUSCULAR HGB CONC 30.7 g/dL (31-35); MEAN CORPUSCULAR VOLUME 77.5 fL (81-99); MONOCYTES % 9.3 % (4.4-11.3); NEUTROPHILS # (AUTO) 6.4 (2.1-6.9); PLATELET COUNT 606 x10e3/uL (140-360); RED BLOOD COUNT 3.74 x10e6/uL (4.3-5.7); RED CELL DISTRIBUTION WIDTH 18.1 % (11.7-14.4)
[2021-04-25 06:31] LABS: ANION GAP 15.9 mmol/L (8-16); CALCIUM 9.4 mg/dL (8.4-10.2); CREATININE, SERUM 1.61 mg/dL (0.72-1.25); POTASSIUM 3.9 mmol/L (3.5-5.1)
[2021-04-25 07:52] VITALS: BP 101/57
[2021-04-25 07:58] VITALS: BP 101/57
[2021-04-25] MEDS: PANTOPRAZOLE SOD 40 MG TABEC PO SCH (08:00)
[2021-04-25] MEDS: FUROSEMIDE INJ 10 MG/ML 2 ML VIAL IV SCH (08:55)
[2021-04-25] MEDS ORDERED: ASPIRIN 81 MG CHEW TAB PO SCH (09:00)
[2021-04-25] MEDS: SODIUM FERRIC GLUCONATE COMPLX 125 MG in SODIUM CHLORIDE 0.9% 100 ML 100 ML IV SCH (09:30)
[2021-04-25] MEDS: AMLODIPINE BESYLATE 5 MG TAB PO SCH (11:20)
[2021-04-25] MEDS: METOPROLOL SUCCINATE 25 MG TAB XL PO SCH (11:20)
[2021-04-25 11:40] VITALS: BP 122/73
[2021-04-25] MEDS ORDERED: PROTONIX40 MG/ML PO (12:19)
== END 2021-04-25 13:05 | disposition home or self-care (01) | DRG 368 ==
LOC: ER 16:09 → ERHOLD 17:35 → INTOOBSV 17:35 → MED/SURG 04-23 10:30 → OBSVTOIN 04-24 11:25
PROVIDERS: ADMIT Internal Medicine; ATTEND Internal Medicine
PROC: 30233N1 Transfusion of Nonautologous Red Blood Cells into Peripheral Vein, Percutaneous Approach (ICD-10-PCS; 2021-04-22)
PROC: 0DBL8ZX Excision of Transverse Colon, Via Natural or Artificial Opening Endoscopic, Diagnostic (ICD-10-PCS; 2021-04-24)
PROC: 0DBP8ZX Excision of Rectum, Via Natural or Artificial Opening Endoscopic, Diagnostic (ICD-10-PCS; 2021-04-24)
PROC: 0DB98ZX Excision of Duodenum, Via Natural or Artificial Opening Endoscopic, Diagnostic (ICD-10-PCS; principal; 2021-04-24 10:30)
PROC: 0DB68ZX Excision of Stomach, Via Natural or Artificial Opening Endoscopic, Diagnostic (ICD-10-PCS; 2021-04-24 10:30)
PROC: 0DB38ZX Excision of Lower Esophagus, Via Natural or Artificial Opening Endoscopic, Diagnostic (ICD-10-PCS; 2021-04-24 10:30)
PROC: 0DBK8ZX Excision of Ascending Colon, Via Natural or Artificial Opening Endoscopic, Diagnostic (ICD-10-PCS; 2021-04-24 10:30)
DX: K20.91 Esophagitis, unspecified with bleeding (principal); K29.71 Gastritis, unspecified, with bleeding; K44.9 Diaphragmatic hernia without obstruction or gangrene; K31.89 Other diseases of stomach and duodenum; K63.5 Polyp of colon; K62.1 Rectal polyp; K64.8 Other hemorrhoids; E78.5 Hyperlipidemia, unspecified; I73.9 Peripheral vascular disease, unspecified; D50.9 Iron deficiency anemia, unspecified; I10 Essential (primary) hypertension; I25.10 Atherosclerotic heart disease of native coronary artery without angina pectoris; Z88.1 Allergy status to other antibiotic agents; Z88.5 Allergy status to narcotic agent; Z88.8 Allergy status to other drugs, medicaments and biological substances; Z95.5 Presence of coronary angioplasty implant and graft; Z82.49 Family history of ischemic heart disease and other diseases of the circulatory system; Z72.0 Tobacco use; G47.00 Insomnia, unspecified
CPT/HCPCS: 36415; 43239; 45378; 45380; 45385; 80048; 80053; 82270; 83010; 83540; 84466; 85025; 85610; 85730; 86850; 86900; 86920; 88302; 88305; 88312; 93005; 99284; G0378; J1940; J2001; J2916; J7050; P9016

== ENCOUNTER → 2021-06-08 | Day surgery (SDC) | payer OTHER ==
[2021-06-04 14:25] LABS: BASOPHILS # (AUTO) 0.1 (0.0-0.1); BASOPHILS % 0.6 % (0.0-1.0); EOSINOPHILS # (AUTO) 0.4 (0.0-0.4); EOSINOPHILS % 3.9 % (0.0-6.0); HEMATOCRIT 35.7 % (38.2-49.6); HEMOGLOBIN 10.7 g/dL (14.0-18.0); LYMPHOCYTES # (AUTO) 2.4 (1.0-3.2); LYMPHOCYTES % 23.9 % (18.0-39.1); MEAN CORPUSCULAR HEMOGLOBIN 26.1 pg (28-32); MEAN CORPUSCULAR VOLUME 87.1 fL (81-99); MONOCYTES # (AUTO) 0.7 (0.2-0.8); MONOCYTES % 7.1 % (4.4-11.3); NEUTROPHILS # (AUTO) 6.4 (2.1-6.9); NEUTROPHILS % 64.2 % (38.7-80.0); PLATELET COUNT 354 x10e3/uL (140-360); RED CELL DISTRIBUTION WIDTH 23.4 % (11.7-14.4)
[2021-06-04 14:44] LABS: ALBUMIN 3.8 g/dL (3.5-5.0); ANION GAP 16.1 mmol/L (8-16); CALCIUM 9.9 mg/dL (8.4-10.2); CREATININE, SERUM 1.7 mg/dL (0.72-1.25); POTASSIUM 5.1 mmol/L (3.5-5.1)
[~2021-06-08] VITALS: Ht 174 cm; Wt 88.5 kg
[2021-06-08] VITALS (7 sets, daily range): BP systolic 97–109; BP diastolic 55–88
[~2021-06-08] MED LIST changes: +ALPRAZOLAM 0.5 MG TAB ONE; +CENTRUM ADULTS1 EACH PO; +DIPHENHYDRAMINE HCL 25 MG CAP ONE; +FENTANYL CITRATE/PF 100MCG/2 ML INJ ONE; +HEPARIN SOD/SOD CHLORIDE 2,000 ML ONE; +IOPAMIDOL 370 MG/ML 200 ML INFUS..BTL INJ ONE; +LIDOCAINE HCL 2% LOCAL 20 ML VIAL ONE; +MIDAZOLAM HCL 2 MG/2 ML VIAL ONE; +PROTONIX40 MG/ML PO; +SODIUM CHLORIDE 0.9% 1000ML 1,000 ML ONE
== END | disposition home or self-care (01) ==
LOC: CATH LAB 12:40
PROVIDERS: ATTEND Internal Medicine Interventional Cardiology
DX: I25.110 Atherosclerotic heart disease of native coronary artery with unstable angina pectoris (principal); R94.39 Abnormal result of other cardiovascular function study; Z01.812 Encounter for preprocedural laboratory examination; Z20.822 Contact with and (suspected) exposure to COVID-19; Z79.82 Long term (current) use of aspirin
CPT/HCPCS: 36415; 76937; 80053; 83880; 85025; 93458; C1887; J2001; J2250; J3010; J7030; Q9967; U0002; 99152